=== PATIENT | female | born 1960 ===

== ENCOUNTER 2020-01-01 10:00 | Inpatient (IN) | payer OTHER ==
[~2020-01-01] VITALS: Ht 157.5 cm; Wt 93.4 kg
[2020-01-01] MEDS ORDERED: SYNTHROID75 MCG PO (11:47)
[2020-01-03] MEDS ORDERED: SYNTHROID175 MCG PO (09:56)
== END 2020-01-04 10:27 | disposition home or self-care (01) | DRG 741 ==
LOC: OB/GYN 01-03 05:45 → O/R 01-03 05:45 → OB/GYN 01-03 13:13 → O/R 01-03 21:30 → OB/GYN 01-04 10:27
PROVIDERS: ADMIT Obstetrics & Gynecology Gynecologic Oncology
PROC: 0UT74ZZ Resection of Bilateral Fallopian Tubes, Percutaneous Endoscopic Approach (ICD-10-PCS; 2020-01-03)
PROC: 0UT24ZZ Resection of Bilateral Ovaries, Percutaneous Endoscopic Approach (ICD-10-PCS; 2020-01-03)
PROC: 07BC4ZX Excision of Pelvis Lymphatic, Percutaneous Endoscopic Approach, Diagnostic (ICD-10-PCS; 2020-01-03)
PROC: 0UT94ZZ Resection of Uterus, Percutaneous Endoscopic Approach (ICD-10-PCS; principal; 2020-01-03 21:30)
DX: C54.1 Malignant neoplasm of endometrium (principal); N83.312 Acquired atrophy of left ovary; N83.311 Acquired atrophy of right ovary; D25.1 Intramural leiomyoma of uterus; N72 Inflammatory disease of cervix uteri